=== PATIENT | female | born 1960 | race Caucasian/White ===

== ENCOUNTER → 2018-03-28 | Outpatient (CLI) | payer BC ==
[~2018-03-28] MED LIST: AMOXICILLIN500 MG PO; ANAPROX DS550 MG PO; ASCRIPTIN ENTER81 MG PO; BUSPAR5 MG PO; CELEXA20 MG PO; CLARITIN10 MG PO; CLEOCIN HCL150 MG PO; FLEXERIL5 MG PO; FLOMAX0.4 MG PO; FLONASE 0.05% 121 EA NAS; HYDROCODONE BIT1 T11 PO; KEFLEX500 MG PO; LEVOTHYROXIN0.075 MG PO; LEVOTHYROXIN0.088 M1 PO; MOTRIN600 MG PO; MOTRIN800 MG PO; PERCOCET 325 MG1 TA2 PO; PREDNICOT20 MG PO; ROBITUSSIN AC 110 ML PO; SERTRALINE HYDR50 MG PO; VICODIN 5/500 505 MG PO; VITAMIN D2000 IU PO; Vicodin 5/500 505 MG PO; ZITHROMAX Z PA250 MG PO; ZITHROMAX250 MG PO; ZOFRAN ODT4 MG SL
== END | disposition home or self-care (01) ==
LOC: RAD 14:46
DX: M54.6 Pain in thoracic spine (principal); M54.2 Cervicalgia; M25.78 Osteophyte, vertebrae; R51 Headache; R42 Dizziness and giddiness; W10.8XXD Fall (on) (from) other stairs and steps, subsequent encounter

== ENCOUNTER 2018-08-11 14:27 | Emergency (ER) | payer OTHER ==
[~2018-08-11] VITALS: Ht 162.5 cm; Wt 67.6 kg
[~2018-08-11 14:27] MED LIST changes: -LEVOTHYROXIN0.088 M1 PO; +Synthroid,Levo75 MCG PO
[2018-08-11 14:47] LABS: BASO # 0.1 10*3/uL (0.0-0.1); BASO % 0.8 % (0.0-1.0); EOS # 0.1 10*3/uL (0.0-0.4); EOS % 1.6 % (1.0-4.0); HEMATOCRIT 43.2 % (37.0-47.0); HEMOGLOBIN 14.4 g/dl (12.0-16.0); LYMPH # 3.2 10*3/uL (1.3-4.4); LYMPH % 50.6 % (27.0-41.0); MEAN CELL VOLUME 87.1 fl (81.0-99.0); MEAN CORPUSCULAR HGB CONC 33.3 g/dl (33.0-37.0); MEAN PLATELET VOLUME 11.1 fl (9.6-12.3); MONO # 0.5 10*3/uL (0.1-1.0); MONO % 7.7 % (3.0-9.0); NEUT # 2.5 10*3/uL (2.3-7.9); NEUT % 39.1 % (47.0-73.0); PLATELET COUNT AUTOMATED 187 10*3/uL (130-400); RED BLOOD COUNT 4.96 10*6/uL (4.10-5.10); RED CELL DISTRI WIDTH 13.4 % (0-14.5); WHITE BLOOD COUNT 6.3 10*3/uL (4.8-10.8)
[2018-08-11 14:47] LABS: BILIRUBIN NEGATIVE (NEGATIVE); BLOOD 2+ (NEGATIVE); CLARITY CLEAR (CLEAR); COLOR YELLOW (YELLOW); GLUCOSE NEGATIVE (NEGATIVE); KETONE NEGATIVE (NEGATIVE); LEUKO ESTERASE NEGATIVE (NEGATIVE); NITRITE NEGATIVE (NEGATIVE); PH 5.5 (5.0-9.0); SPECIFIC GRAVITY 1.015 (1.005-1.030); UROBILINOGEN 0.2 E.U./dl (0.2-1.0)
[2018-08-11 14:56] LABS: BACTERIA 2+; MUCOUS TRACE; WBC 0-2 wbc/hpf (0-5)
[2018-08-11 15:01] LABS: ALKALINE PHOSPHATASE 66 U/L (45-117); BUN 13 mg/dl (7-24); CHLORIDE 106 mmol/L (98-107); CREATININE 0.93 mg/dL (0.55-1.02); LIPASE 487 U/L (73-393); POTASSIUM 4.1 mmol/L (3.5-5.1); SGOT/AST 15 IU/L (3-35); SGPT/ALT 24 U/L (12-78); SODIUM 140 mmol/L (136-145); TOTAL PROTEIN 7.5 gm/dL (6.4-8.2)
[2018-08-11] MEDS ORDERED: ZOFRAN4 MG PO (16:13)
== END 2018-08-11 16:30 | disposition home or self-care (01) ==
LOC: ED 14:27
PROVIDERS: Nurse Practitioner Family
DX: K80.20 Calculus of gallbladder without cholecystitis without obstruction (principal); K85.90 Acute pancreatitis without necrosis or infection, unspecified; R03.0 Elevated blood-pressure reading, without diagnosis of hypertension; G43.909 Migraine, unspecified, not intractable, without status migrainosus; Z88.8 Allergy status to other drugs, medicaments and biological substances; Z88.2 Allergy status to sulfonamides; Z79.899 Other long term (current) drug therapy; Z87.442 Personal history of urinary calculi

== ENCOUNTER 2018-08-14 17:37 | Inpatient (IN) | payer OTHER ==
[~2018-08-14] VITALS: Ht 162.5 cm; Wt 71.7 kg
--- NOTE | ~2018-08-14 | EKG ---
[place], [place] ELECTROCARDIOGRAM REPORT NAME: NOREEN GEE UNIT #: [id number] ROOM: 528 DOCTOR: EPIPHANY DRAFT REPORT BIRTHDATE: [birth year] [facility] Test Date: 2018-08-14 Test Time: 18:42:21 Pat Name: NOREEN GEE Department: ER Room: 528 Gender: F Department Of Mathematics Chair: EKG.MI : 1960 Requested By: DENIZ GIMENEZ DNP Order Number: [id number] Reading MD: Sandi Harrington MD Measurements Intervals Duarte Rate: 70 P: 30 NV: 119 QRS: 58 QRSD: 73 T: 54 QT: 400 QTc: 432 Interpretive Statements Sinus rhythm Borderline short NV interval Low voltage, precordial leads Borderline T abnormalities, anterior leads Electronically Signed On 08-15-2018 9:38:17 PST by Sandi Harrington MD CM:EKGRPT:ELECTROCARDIOGRAM REPORT [id number] DENIZ GIMENEZ DNP EPIPHANY DRAFT REPORT DENIZ GIMENEZ DNP
--- NOTE | ~2018-08-14 | O ---
[place], [place] OPERATIVE NOTE NAME: [facility]EE [id number] UNIT #: [id number] ROOM: 528 DOCTOR: KARSON NEGRETE MD BIRTHDATE: [birth year] DOS: 08/16/2018 PREOPERATIVE DIAGNOSIS: Symptomatic cholelithiasis. POSTOPERATIVE DIAGNOSIS: Symptomatic cholelithiasis. PROCEDURE: Laparoscopic cholecystectomy. SURGEON: Karson Negrete MD ROUTE SPECIALIST: BELEN. ANESTHESIA: General with endotracheal intubation. INDICATIONS: This is a 58-year-old lady admitted with symptomatic gallstones, who is here for the above-mentioned procedure. The procedure and its complications were explained to the patient in detail preoperatively. Complications that were discussed included but were not limited to bleeding, infection, hematoma/seroma/abscess formation, prolonged postoperative pain, damage to lying vital structures, inadvertent injury to common bile duct, biloma formation and incisional hernia formation. She agreed to proceed. DESCRIPTION OF PROCEDURE: After identifying the patient, the patient was brought to the operating suite and laid in the supine position. After time-out procedure was called, general anesthesia was induced and the parts were painted and draped in the usual sterile fashion. An incision was made below the umbilicus in a transverse fashion. The skin and the subcutaneous tissue were incised in the line of the incision. The fascia was incised vertically and two stay sutures with 0 Vicryl were taken on either side. The peritoneum was opened and a 12 mm Mounika port was introduced into the peritoneal cavity. Under direct vision, an epigastric incision of 10 mm and two 5 mm incision were made in the right upper quadrant and appropriate size ports were introduced. The gallbladder was retracted superiorly and laterally. The cystic duct and the cystic artery were carefully dissected until the critical view of safety was obtained and the triangle of Calot was clearly identified. Each of these structures were then clipped 3 times and cut between the first and the second clip. The gallbladder was then removed from the bed of the gallbladder and placed in an EndoCatch bag. It was sent for histopathological diagnosis. Thereafter, the liver bed was inspected. Minor bleeding points were cauterized with the help of electrocautery and a sheet of Surgicel was placed for additional hemostasis. Thereafter, hemostasis was confirmed and irrigation fluid was sucked away. Thereafter, the right upper quadrant and epigastric ports were removed and there was no bleeding seen. The umbilical port was also removed and the pneumoperitoneum was decompressed. A 0 Vicryl stitch was taken to close the fascia and the stay sutures were tied together as well. The edges of the skin were infiltrated with 1% plain lidocaine and approximated with the help of 4-0 Vicryl in a subcuticular running fashion. Dressings were placed. The patient tolerated the procedure well. There were no complications. She was extubated uneventfully and brought back to the recovery room in stable fashion. There were no complications. Dr. Karson Negrete, the attending surgeon, was present [place], [place] OPERATIVE NOTE NAME: NOREEN GEE UNIT #: [id number] ROOM: 528 DOCTOR: KARSON NEGRETE MD BIRTHDATE: [birth year] throughout the operating case. Karson Negrete MD CM:OPRECORD:OPERATIVE NOTE [id number] KARSON NEGRETE MD 08/16/18 1229 interface
[~2018-08-14 17:37] MED LIST changes: +ZOFRAN4 MG PO
[2018-08-14 17:40] VITALS: BP 140/90
[2018-08-14 18:07] LABS: BASO # 0.1 10*3/uL (0.0-0.1); BASO % 1.2 % (0.0-1.0); EOS # 0.1 10*3/uL (0.0-0.4); EOS % 1.6 % (1.0-4.0); HEMATOCRIT 39.6 % (37.0-47.0); HEMOGLOBIN 13.4 g/dl (12.0-16.0); LYMPH # 2.6 10*3/uL (1.3-4.4); LYMPH % 43.3 % (27.0-41.0); MEAN CORPUSCULAR HGB 29.8 pg (27.0-31.0); MEAN CORPUSCULAR HGB CONC 33.8 g/dl (33.0-37.0); MEAN PLATELET VOLUME 11.3 fl (9.6-12.3); MONO # 0.4 10*3/uL (0.1-1.0); MONO % 6.1 % (3.0-9.0); NEUT # 2.9 10*3/uL (2.3-7.9); NEUT % 47.6 % (47.0-73.0); PLATELET COUNT AUTOMATED 167 10*3/uL (130-400); RED CELL DISTRI WIDTH 13.5 % (0-14.5); WHITE BLOOD COUNT 6.1 10*3/uL (4.8-10.8)
[2018-08-14 18:21] LABS: ACT PARTIAL THROMBO TIME 25.1 SECONDS (20.8-31.5)
[2018-08-14 18:22] LABS: ALBUMIN 3.6 gm/dl (3.1-4.5); ALKALINE PHOSPHATASE 59 U/L (45-117); BUN 9 mg/dl (7-24); CHLORIDE 110 mmol/L (98-107); CREATININE 0.99 mg/dL (0.55-1.02); LIPASE 104 U/L (73-393); POTASSIUM 3.6 mmol/L (3.5-5.1); SGOT/AST 12 IU/L (3-35); SGPT/ALT 21 U/L (12-78); SODIUM 144 mmol/L (136-145); TOTAL PROTEIN 6.7 gm/dL (6.4-8.2)
[2018-08-14 19:50] VITALS: BP 107/61
[2018-08-14 19:55] VITALS: BP 110/61
--- NOTE | 2018-08-14 19:55 | NUR ---
Time: 1952 A 58 year old FEMALE admitted to 5E under services of HAYDER JOHNSTON DO, Pt. arrived via ambulatory from ER. Chief complaint: INTRACTABLE ABD PAIN, NAUSEA/VOMITING. MYCHAL EUGENE
--- NOTE | 2018-08-14 21:16 | NUR ---
Dr. WICK consulted for SYMPTOMATIC CHOLELITHIASIS. KEEP PT NPO UNTIL HE SEES HER TOMORROW. MYCHAL EUGENE
[2018-08-14] MEDS ORDERED: VITAMIN D400 I1 PO (23:38)
[2018-08-14] MEDS ORDERED: VISTARIL50 MG PO (23:39)
[2018-08-15] VITALS: BP 91/57
--- NOTE | 2018-08-15 00:22 | NUR ---
PT MEDICATED W/ZOFRAN FOR C/O NAUSEA AND MORPHINE FOR C/O RUQ PAIN 02/06. PT C/O FEELING COLD. WARM BLANKET PLACED OVER PT. CALL LIGHT IN REACH.
--- NOTE | 2018-08-15 01:00 | NUR ---
PT RESTING QUIETLY IN BED. NO FURTHER S/S OF N/V AND/OR PAIN NOTED. CALL LIGHT IN REACH.
--- NOTE | 2018-08-15 01:26 | NUR ---
Patient sleeping. Respirations relaxed and easy. Siderails up . Wheelaguedas on. MYCHAL EUGENE
--- NOTE | 2018-08-15 05:55 | NUR ---
PT MEDICATED W/MORPHINE 2MG IVP FOR C/O RUQ PAIN 03/09. WILL MONITOR FOR EFFECTIVENESS.
[2018-08-15 06:45] LABS: BASO # 0.1 10*3/uL (0.0-0.1); BASO % 1.3 % (0.0-1.0); EOS # 0.1 10*3/uL (0.0-0.4); EOS % 2.4 % (1.0-4.0); HEMATOCRIT 37.6 % (37.0-47.0); LYMPH # 2.7 10*3/uL (1.3-4.4); LYMPH % 59.8 % (27.0-41.0); MEAN CORPUSCULAR HGB 29.2 pg (27.0-31.0); MEAN CORPUSCULAR HGB CONC 31.9 g/dl (33.0-37.0); MEAN PLATELET VOLUME 11.9 fl (9.6-12.3); MONO # 0.3 10*3/uL (0.1-1.0); MONO % 6.8 % (3.0-9.0); NEUT # 1.4 10*3/uL (2.3-7.9); NEUT % 29.5 % (47.0-73.0); PLATELET COUNT AUTOMATED 152 10*3/uL (130-400); RED BLOOD COUNT 4.11 10*6/uL (4.10-5.10); RED CELL DISTRI WIDTH 13.8 % (0-14.5); WHITE BLOOD COUNT 4.6 10*3/uL (4.8-10.8)
[2018-08-15 06:52] LABS: MEAN CELL VOLUME 91.5 fl (81.0-99.0)
[2018-08-15 06:53] LABS: ACT PARTIAL THROMBO TIME 25.7 SECONDS (20.8-31.5)
[2018-08-15 07:09] LABS: ALKALINE PHOSPHATASE 51 U/L (45-117); BUN 9 mg/dl (7-24); CHLORIDE 114 mmol/L (98-107); CHOLESTEROL 193 mg/dL (<200); CREATININE 0.98 mg/dL (0.55-1.02); FREE T4 0.92 ng/dl (0.76-1.46); HDL CHOLESTEROL 33 mg/dl (40-60); LDL CHOLESTEROL 116 mg/dL (9-159); PHOSPHOROUS 3.2 mg/dL (2.5-4.9); POTASSIUM 4.3 mmol/L (3.5-5.1); SGOT/AST 12 IU/L (3-35); SGPT/ALT 18 U/L (12-78); SODIUM 145 mmol/L (136-145); TRIGLYCERIDES 219 mg/dl (<150); VLDL CHOLESTEROL 44 mg/dL (6-40)
[2018-08-15 07:54] LABS: VITAMIN D, 25-HYDROXY 85.3 ng/mL (30-100)
[2018-08-15 08:00] VITALS: BP 97/50
--- NOTE | 2018-08-15 08:00 | NUR ---
PT AWAKE AND RESTING IN BED. NO ABNORMAL FINDINGS ON ASSESSMENT. TRANSPORT ARRIVED TO FLOOR TO TAKE PT TO US.
--- NOTE | 2018-08-15 08:13 | NUR ---
24 HR CHART CHECK COMPLETE
--- NOTE | 2018-08-15 10:51 | NUR ---
PT VERBALIZED AGGITATION TOWARDS HER NPO STATUS STATING THAT SHE WANTS TO BE ABLE TO EAT AND DRINK. PT WAS NPO FOR US. DR GRAY CONTACTED ABOUT A DIET ORDER AND HE STATED THAT HE WOULD BE UP TO SEE THE PATIENT AND THEN WILL GIVE AN ORDER.
[2018-08-15 12:00] VITALS: BP 108/63
--- NOTE | 2018-08-15 14:14 | NUR ---
Neon Tube Pumper in to talk to patient. Patient states lives at with SON AND HIS GIRLFRIEND. There are NO steps in the home. Physician: DEMETRIS CHANDLER Pharmacy: [facility] Home health services: NONE Patient's level of ADLs: INDEPENDENT Patient has working utilities: YES DME: NONE Follow-up physician's appointment after d/c: WILL BE MADE BY HOSPITALIST NURSE DIRECTOR ON DISCHARGE Does patient want to access PORTAL?: NO Discharge plan PT STATES SHE LIVES AT HOME AND IS INDEPENDENT IN CARE. DENIES ANY HOME NEEDS. WILL CONTINUE TO FOLLOW.. QUINN QUEZADA
[2018-08-15 16:00] VITALS: BP 111/56
[2018-08-15 19:37] VITALS: BP 124/74
--- NOTE | 2018-08-15 20:00 | NUR ---
PRE-OP QUESTIONNAIRE DONE WITH PATIENT. PT. IS ALERT & ORIENTED. PULSE OX 94% ON ROOM AIR. LUNGS DIMINISHED BILATERALLY WITH AN OCCASIONAL DRY COUGH NOTED. PT. STATES THAT SHE HAD A BOWEL MOVEMENT 2 DAYS AGO & THAT IS HER NORM. VOIDING WITHOUT DIFFICULTY. HEP LOCK INTACT TO LEFT FOREARM; SITE ASYMPTOMATIC. PT. VOICES NO C/O PAIN OR DISCOMFORT AT THIS TIME. CALL LIGHT WITHIN REACH.
[2018-08-16] VITALS (10 sets, daily range): BP systolic 113–172; BP diastolic 2–85
--- NOTE | 2018-08-16 02:30 | NUR ---
MEDICATED WITH NORCO FOR C/O ABDOMINAL PAIN.
--- NOTE | 2018-08-16 04:30 | NUR ---
PT. RESTING IN BED WITH EYES CLOSED. NORCO GIVEN EARLIER APPARENTLY EFFECTIVE. CALL LIGHT REMAINS WITHIN REACH.
[2018-08-16 06:43] LABS: EOS # 0.1 10*3/uL (0.0-0.4); EOS % 1.9 % (1.0-4.0); HEMATOCRIT 36.8 % (37.0-47.0); HEMOGLOBIN 12.1 g/dl (12.0-16.0); LYMPH # 2.2 10*3/uL (1.3-4.4); LYMPH % 53.5 % (27.0-41.0); MEAN CELL VOLUME 89.3 fl (81.0-99.0); MEAN CORPUSCULAR HGB 29.4 pg (27.0-31.0); MEAN CORPUSCULAR HGB CONC 32.9 g/dl (33.0-37.0); MONO # 0.3 10*3/uL (0.1-1.0); MONO % 7.2 % (3.0-9.0); NEUT # 1.5 10*3/uL (2.3-7.9); NEUT % 36.4 % (47.0-73.0); PLATELET COUNT AUTOMATED 142 10*3/uL (130-400); RED BLOOD COUNT 4.12 10*6/uL (4.10-5.10); RED CELL DISTRI WIDTH 13.2 % (0-14.5); WHITE BLOOD COUNT 4.2 10*3/uL (4.8-10.8)
[2018-08-16 07:09] LABS: BUN 12 mg/dl (7-24); CHLORIDE 109 mmol/L (98-107); CREATININE 0.88 mg/dL (0.55-1.02); POTASSIUM 4.4 mmol/L (3.5-5.1); SODIUM 142 mmol/L (136-145)
--- NOTE | 2018-08-16 07:25 | NUR ---
PT AWAKE AND RESTING IN BED. BEDSIDE REPORT RECIEVED FROM CYNTHIA CARTER. PT STATES THAT SHE EAGER TO BE TAKEN DOWN TO SURGERY. HER IV IN THE LEFT FOREARM WAS NOTED TO BE PAINFUL AND SYMPTOMATIC SO THE LINE WAS DISCONTINUED. STUDENT NURSE FROM THE [facility] WILL ATTEMPT NEW LINE. CALL LIGHT WITHIN REACH.
--- NOTE | 2018-08-16 07:54 | NUR ---
24 HR CHART CHECK COMPLETE.
--- NOTE | 2018-08-16 08:00 | NUR ---
VS STABLE, CHRISTINA, HEART SOUNDS NORMAL, LUNGS SOUND CLEAR AND DIMINISHED BILATERALLY, CAP REFILL <3, ABDOMEN SOFT, NON-DISTENDED/ NON-TENDER, BSX4, SKIN INTACT, DRY/PINK/WARM, GOOD SKIN TURGOR, BRP, SELF-AMBULATORY, POSITIVE PEDAL PULSES, NO EDEMA NOTED AT THIS TIME, PATIENT NOTED NO PAIN AT THIS TIME, CHANGED IV HEPLOCK SITE TO LEFT HAND, PATIENT REMOVED JEWLERY AND DENTURES AND GAVE TO , APPLIED SINTIA HOSE. TAURUS LOPEZ [facility]
--- NOTE | 2018-08-16 09:00 | NUR ---
VS STABLE, NPO SINCE [id number], PATIENT TAKEN DOWN TO SURGERY, JEWELRY AND DENTURES GIVEN TO . TAURUS LOPEZ SP[facility]
--- NOTE | 2018-08-16 12:44 | NUR ---
PATIENT REMAINS IN SURGERY. [id number]
--- NOTE | 2018-08-16 14:12 | NUR ---
PT RETURNED TO THE FLOOR FROM SURGERY. PT IS LETHARGIC AND STATES THAT SHE IS COLD. PT GIVEN WARM BLANKETS AND HER CALL LIGHT. WILL CONTINUET TO MONITOR.
--- NOTE | 2018-08-16 17:15 | NUR ---
Discharge instructions reviewed with patient/family. Patient receptive and verbalizes understanding. Follow-up care arranged. Written instructions given to patient/family. MERLYN IQBAL
== END 2018-08-16 17:15 | disposition home or self-care (01) | DRG 419 ==
LOC: ED 17:37 → 5E 19:13 → EDHOLD 19:13 → 5E 19:29
PROVIDERS: Family Medicine; Internal Medicine; Nurse Practitioner Family; ADMIT Internal Medicine
PROC: 0FT44ZZ Resection of Gallbladder, Percutaneous Endoscopic Approach (ICD-10-PCS; principal; 2018-08-16)
DX: K80.20 Calculus of gallbladder without cholecystitis without obstruction (principal); E66.3 Overweight; R73.9 Hyperglycemia, unspecified; E87.8 Other disorders of electrolyte and fluid balance, not elsewhere classified; R00.0 Tachycardia, unspecified; G43.909 Migraine, unspecified, not intractable, without status migrainosus; E03.9 Hypothyroidism, unspecified; F17.210 Nicotine dependence, cigarettes, uncomplicated; Z71.6 Tobacco abuse counseling; Z68.27 Body mass index [BMI] 27.0-27.9, adult; Z88.8 Allergy status to other drugs, medicaments and biological substances; Z88.2 Allergy status to sulfonamides; Z83.3 Family history of diabetes mellitus; Z98.51 Tubal ligation status; Z82.49 Family history of ischemic heart disease and other diseases of the circulatory system; Z87.442 Personal history of urinary calculi; Z82.3 Family history of stroke; Z91.048 Other nonmedicinal substance allergy status; Z79.899 Other long term (current) drug therapy